=== PATIENT | female | born 1950 | race African-American/Black ===

== ENCOUNTER 2016-05-22 16:28 | Emergency (ER) | payer MEDICARE, MEDICAID ==
--- NOTE | 2016-05-22 17:23 | ER Document Report ---
ED Medical Screen (RME) - General Stated Complaint: TOE PAIN Notes: 65 yo female c/o right great toe pain x 3 days. + necrosis noted to toe. denies trauma. denies DM + hx/o HTN. TRAVEL OUTSIDE OF THE [place] IN LAST 30 DAYS: No - Related Data Allergies/Adverse Reactions: No Known Allergies Allergy (Verified 05/22/16 17:20) Past Medical History - Past Medical History Cardiac Medical History: Reports: Hx Hypertension Denies: Hx Atrial Fibrillation, Hx Congestive Heart Failure, Hx Coronary Artery Disease, Hx Heart Attack, Hx Hypercholesterolemia, Hx Peripheral Vascular Disease, Hx Pulmonary Embolism, Hx Heart Murmur Pulmonary Medical History: Denies: Hx Asthma, Hx Bronchitis, Hx COPD, Hx Pneumonia, Hx Respiratory Failure, Hx Sleep Apnea, Hx Tuberculosis Neurological Medical History: Denies: Hx Cerebrovascular Accident, Hx Seizures Renal/ Medical History: Denies: Hx End Stage Renal Disease, Hx Kidney Stones, Hx Ovarian Cysts, Hx Peritoneal Dialysis, Hx Pelvic Inflammatory Disease Malignancy Medical History: Denies: Hx Breast Cancer, Hx Cervical Cancer, Hx Lung Cancer, Hx Ovarian Cancer GI Medical History: Denies: Hx Crohn's Disease, Hx Gastroesophageal Reflux Disease, Hx Hiatal Hernia, Hx Irritable Bowel, Hx Liver Failure, Hx Ulcer Musculoskeltal Medical History: Reports Hx Arthritis, Denies Hx Fibromyalgia, Denies Hx Multiple Sclerosis, Denies Hx Muscular Dystrophy Psychiatric Medical History: Reports: Hx Bipolar Disorder, Hx Depression Denies: Hx Dementia, Hx Post Traumatic Stress Disorder, Hx Schizophrenia Traumatic Medical History: Denies: Hx Fractures Past Surgical History: Reports: Hx Section. Denies: Hx Appendectomy, Hx Bowel Surgery, Hx Cholecystectomy, Hx Colostomy, Hx Coronary Artery Bypass Graft, Hx Gastric Bypass Surgery, Hx Herniorrhaphy, Hx Hysterectomy, Hx Mastectomy, Hx Pacemaker, Hx Tonsillectomy, Hx Tubal Ligation - Immunizations Hx Diphtheria, Pertussis, Tetanus Vaccination: Yes
[2016-05-22 17:55] LABS: HEMATOCRIT 33.3 % (36.0-47.0); HGB HCT DIFFERENCE -0.3; MEAN CORPUSCULAR HEMOGLOBIN 25.1 pg (27.0-33.4); MEAN CORPUSCULAR VOLUME 76 fl (80-97); RED BLOOD COUNT 4.38 10^6/uL (3.72-5.28); RED CELL DISTRIBUTION WIDTH 16.2 % (11.5-14.0)
[2016-05-22 18:09] LABS: ALANINE AMINOTRANSFERASE 79 U/L (9-52); ALBUMIN 3.6 g/dL (3.5-5.0); ALKALINE PHOSPHATASE 171 U/L (38-126); ANION GAP 17 (5-19); ASPARTATE AMINO TRANSFERASE 100 U/L (14-36); BILIRUBIN,TOTAL 0.8 mg/dL (0.2-1.3); BLOOD UREA NITROGEN 25 mg/dL (7-20); CALCIUM 9.8 mg/dL (8.4-10.2); CARBON DIOXIDE 17 mmol/L (22-30); CHLORIDE 102 mmol/L (98-107); CREATININE RESULT 0.93 mg/dL (0.52-1.25); GLUCOSE 112 mg/dL (75-110); SODIUM 136.3 mmol/L (137-145); TOTAL PROTEIN 7.9 g/dL (6.3-8.2)
[2016-05-22 18:14] LABS: BASOPHILS % (MANUAL) 0 % (0-2); EOSINOPHILS % (MANUAL) 1 % (0-6); LYMPHOCYTES % (MANUAL) 7 % (13-45); TOTAL CELLS COUNTED 100
[2016-05-22 18:16] LABS: ANISOCYTOSIS 1+; HYPOCHROMASIA SLIGHT; MICROCYTOSIS 1+; TARGET CELLS 1+; TOXIC GRANULATION SLIGHT
[2016-05-22] MEDS ORDERED: OXYCODONE-ACETAMINOPHEN 5-325 MG TABLET PO ONE (19:15)
--- NOTE | 2016-05-22 19:28 | ER Document Report ---
ED General - General Chief Complaint: Foot Pain Stated Complaint: TOE PAIN Mode of Arrival: Medic Information source: Patient, Relative - son in law Notes: Patient presents to the emergency department with complaints of right great toe pain. The toe is necrotic looking with a cold foot, cool to touch up to mid [place]. Patient reports symptoms started approximately 2 weeks ago. She denies trauma. She denies recent trip. She denies history of PEs or DVTs. Patient denies being a diabetic reports only past medical history is a . Son in law pulled me aside and reports patient has been talking crazy for the past 2 weeks. He is she's been talking to her mother. He reports the foot started being discolored 3 weeks ago. He denies trauma. He reports patient does smoke cigarettes and is a heavy beer drinker. TRAVEL OUTSIDE OF THE [place] IN LAST 30 DAYS: No - HPI Onset: Other - 3 weeks Onset/Duration: Gradual Quality of pain: Achy Severity: Severe Pain Level: 5 Associated symptoms: None Exacerbated by: Movement, Walking, Other - touch Relieved by: Denies Similar symptoms previously: No Recently seen / treated by doctor: No - Related Data Allergies/Adverse Reactions: No Known Allergies Allergy (Verified 05/22/16 17:20) Past Medical History - General Information source: Patient - Social History Smoking Status: Current Every Day Smoker Cigarette use (# per day): Yes - 1 ppd Chew tobacco use (# tins/day): No Frequency of alcohol use: daily - beer Lives with: Family Family History: None Patient has suicidal ideation: No Patient has homicidal ideation: No - Past Medical History Cardiac Medical History: Reports: Hx Hypertension Denies: Hx Atrial Fibrillation, Hx Congestive Heart Failure, Hx Coronary Artery Disease, Hx Heart Attack, Hx Hypercholesterolemia, Hx Peripheral Vascular Disease, Hx Pulmonary Embolism, Hx Heart Murmur Pulmonary Medical History: Denies: Hx Asthma, Hx Bronchitis, Hx COPD, Hx Pneumonia, Hx Respiratory Failure, Hx Sleep Apnea, Hx Tuberculosis Neurological Medical History: Denies: Hx Cerebrovascular Accident, Hx Seizures Renal/ Medical History: Denies: Hx End Stage Renal Disease, Hx Kidney Stones, Hx Ovarian Cysts, Hx Peritoneal Dialysis, Hx Pelvic Inflammatory Disease Malignancy Medical History: Denies: Hx Breast Cancer, Hx Cervical Cancer, Hx Lung Cancer, Hx Ovarian Cancer GI Medical History: Denies: Hx Crohn's Disease, Hx Gastroesophageal Reflux Disease, Hx Hiatal Hernia, Hx Irritable Bowel, Hx Liver Failure, Hx Ulcer Musculoskeltal Medical History: Reports Hx Arthritis, Denies Hx Fibromyalgia, Denies Hx Multiple Sclerosis, Denies Hx Muscular Dystrophy Psychiatric Medical History: Reports: Hx Bipolar Disorder, Hx Depression Denies: Hx Dementia, Hx Post Traumatic Stress Disorder, Hx Schizophrenia Traumatic Medical History: Denies: Hx Fractures Past Surgical History: Reports: Hx Section. Denies: Hx Appendectomy, Hx Bowel Surgery, Hx Cholecystectomy, Hx Colostomy, Hx Coronary Artery Bypass Graft, Hx Gastric Bypass Surgery, Hx Herniorrhaphy, Hx Hysterectomy, Hx Mastectomy, Hx Pacemaker, Hx Tonsillectomy, Hx Tubal Ligation - Immunizations Hx Diphtheria, Pertussis, Tetanus Vaccination: Yes Hx Pneumococcal Vaccination: 12/30/11 Review of Systems - Review of Systems Notes: Review HPI for review of systems., All other systems negative Physical Exam - Vital signs Vitals: Temp Pulse Resp BP Pulse Ox 97.4 F 126 H 14 103/80 100 05/22/16 17:20 05/22/16 17:20 05/22/16 17:20 05/22/16 17:20 05/22/16 17:20 - Notes Notes: PHYSICAL EXAMINATION: GENERAL: frail looking HEAD: Atraumatic, normocephalic. EYES: Pupils equal round extraocular movements intact, sclera anicteric, conjunctiva are normal. ENT: nares patent Moist mucous membranes. NECK: Normal range of motion, supple without lymphadenopathy LUNGS: CTAB and equal. No wheezes rales or rhonchi. HEART: sinus tach ABDOMEN: Soft, no tenderness. No guarding, no rebound EXTREMITIES: Normal range of motion, no pitting edema. c/o pain with any touch to right foot Right great toe up to mid foot medially his black dark and cold no pedal pulse no popliteal pulse on right leg good femoral pulse. Good femoral pulse to left leg and left popliteal decreased pedal pulse to left foot but good cap refill NEUROLOGICAL: Cranial nerves grossly intact. Normal sensory/motor PSYCH: Normal mood, normal affect. Answers all questions appropriately SKIN: Warm, Dry, normal turgor, no rashes or lesions noted Course - Re-evaluation Re-evalutation: 05/22/16 19:25 Dr. Eden into the room to assess patient and agrees with arterial occlusion concern. No right pedal pulse. no right popliteal pulse noted, good right femoral artery pulse, decreased left pedal pulse but foot is warm with expected cap refill for age. Good left popliteal pulse. Dr Stoddard contacted. He does not handle arterial occlusion problems. [facility] contacted for transfer Dr Fraga vascular surgeon consulted, he accepts patient, pt to be transferred to [facility] room 431. Son in law aware. pt npo, reports has not ate for 2 days. 05/22/16 21:10 [facility] here to transfer patient. Patient stable fever of transport. Patient reports pain decreased since she received Percocet - Vital Signs Vital signs: Temp Pulse Resp BP Pulse Ox 98.4 F 119 H 16 117/76 98 05/22/16 20:29 05/22/16 20:29 05/22/16 20:29 05/22/16 20:29 05/22/16 20:29 - Laboratory Result Diagrams: 05/22/16 17:40 05/22/16 17:40 Laboratory results interpreted by me: 05/22/16 05/22/16 17:40 17:40 WBC 22.0 H Hgb 11.0 L Hct 33.3 L MCV 76 L MCH 25.1 L RDW 16.2 H Plt Count 732 H Seg Neuts % (Manual) 82 H Lymphocytes % (Manual) 7 L Abs Neuts (Manual) 18.0 H Abs Monocytes (Manual) 2.2 H Sodium 136.3 L Carbon Dioxide 17 L BUN 25 H Glucose 112 H AST 100 H ALT 79 H Alkaline Phosphatase 171 H - Diagnostic Test Radiology reviewed: Image reviewed, Reports reviewed Discharge - Discharge Clinical Impression: Right foot pain, Necrosis of toe Condition: Good Disposition: [facility] Referrals: HAL GLEASON DO [Primary Care Provider] - Follow up as needed
[2016-05-22 20:36] VITALS: BP 117/76
--- NOTE | 2016-05-23 08:23 | EKG REPORT ---
SEVERITY:- BORDERLINE ECG - SINUS TACHYCARDIA BORDERLINE T WAVE ABNORMALITIES INFEROLATERAL LEADS. : Confirmed by: Alan Philip MD 23-May-2016 08:23:00
== END 2016-05-22 21:14 | disposition short-term general hospital (02) ==
LOC: ER 16:28
DX: I96 Gangrene, not elsewhere classified (principal); M79.674 Pain in right toe(s); M79.671 Pain in right foot; F17.210 Nicotine dependence, cigarettes, uncomplicated; I10 Essential (primary) hypertension
CPT/HCPCS: 93005; 99285; 36415; 87040; 85025; 80053; 83605; 73660; 93010; A9270